=== PATIENT | female | born 1980 | race African-American/Black ===

== ENCOUNTER 2016-11-20 12:25 | Emergency (ER) | payer MEDICARE, MEDICAID ==
[~2016-11-20] VITALS: Ht 167.6 cm; Wt 110.0 kg
[~2016-11-20 12:25] MED LIST: EQUE100C PO; LOSA50TA PO; METO50TA PO
[2016-11-20 12:38] VITALS: BP 168/93; PULSE 68; RESP 18; TEMP 98.2; O2SAT 100
[2016-11-20 13:16] LABS: BASOPHIL % 0.2 % (0.0-2.0); HEMATOCRIT 35.8 % (35.0-46.0); HEMO FLAGS DIFF FINAL; LYMPH % 30.1 % (9.0-44.0); LYMPHOCYTE # 1.9 TH/MM3 (1.0-4.8); MEAN CELL VOLUME 82.8 FL (80.0-100.0); MEAN CORPUSCULAR HEMOGLOBIN 26.8 PG (27.0-34.0); MEAN CORPUSCULAR HGB CONC 32.3 % (32.0-36.0); MONO % 6.2 % (0.0-8.0); NEUT % 63.5 % (16.0-70.0); PLATELET COUNT 214 TH/MM3 (150-450); RED BLOOD COUNT 4.33 MIL/MM3 (4.00-5.30); RED CELL DISTRIBUTION WIDTH 14.7 % (11.6-17.2); WHITE BLOOD COUNT 6.4 TH/MM3 (4.0-11.0)
--- NOTE | 2016-11-20 13:21 | PD ---
HPI Chief Complaint: Pain: Acute or Chronic Time Seen by Provider: 13:19 Travel History International Travel<30 days: No Contact w/Intl Traveler<30days: No Traveled to known affect area: No History of Present Illness HPI Patient comes in complaining of left-sided chest pain that began about an hour prior to arrival. Patient states she is had similar chest pain in the past and has been admitted to the hospital and evaluated for it. Patient denies any cardiac evaluation outside hospital setting. Patient states that this is slightly different than her normal chest pain. Patient's chest pain normally is substernal and radiates into her abdomen however at this time was left side of her chest was pressure-like in nature. Patient reports associated headache. Denies any nausea, vomiting, diaphoresis, back pain, numbness or tingling anywhere, shortness breath, cough, or fever. PFSH Past Medical History Hx Anticoagulant Therapy: No Bipolar Disorder: Yes Cardiovascular Problems: Yes Chemotherapy: No Cerebrovascular Accident: No Diabetes: Yes Diminished Hearing: No Hypertension: Yes Psychiatric: Yes Reproductive: Yes (Polcystic Ovarian Disease) Respiratory: No : 0 Para: 0 Miscarriage: 0 : 0 Past Surgical History Hysterectomy: No Social History Alcohol Use: No Tobacco Use: No (never) Substance Use: No (Denies any abuse or current use.) Allergies-Medications (Allergen,Severity, Reaction): Coded Allergies: Amlodipine (Verified Allergy, Unknown, 11/07/16) Per pt. Metformin (Verified Allergy, Unknown, 11/07/16) Per pt, she thinks that she cannot take this as it resulted in Hives & Respiratory Issues. Reported Meds & Prescriptions Reported Meds & Active Scripts Active Reported Equetro ER 12 HR (Carbamazepine ER 12 HR) 100 Mg Cap 100 Mg PO DAILY Metoprolol Tartrate 50 Mg Tab 50 Mg PO BID Losartan (Losartan Potassium) 50 Mg Tab 50 Mg PO DAILY Review of Systems Except as stated in HPI: all other systems reviewed are Neg Physical Exam Narrative GENERAL: Well-developed, overly nourished, in no acute distress, and non-ill appearing. SKIN: Focused skin assessment warm and dry. HEAD: Atraumatic. Normocephalic. EYES: Pupils equal and round. EOMI. No scleral icterus. No injection or drainage. ENT: No nasal bleeding or discharge. Mucous membranes pink and moist. NECK: Trachea midline. No JVD. Supple. No nuclear rigidity. CARDIOVASCULAR: Regular rate and rhythm. No murmur appreciated. RESPIRATORY: No accessory muscle use. No respiratory distress. Clear to auscultation. Breath sounds equal bilaterally. MUSCULOSKELETAL: No obvious deformities. No clubbing. No cyanosis. No edema. Full range of motion. NEUROLOGICAL: Awake and alert. No obvious cranial nerve deficits. Motor grossly within normal limits. Normal speech. PSYCHIATRIC: Appropriate mood and affect; insight and judgment normal. Data Data Last Documented VS Vital Signs Date Time Temp Pulse Resp B/P Pulse Ox O2 Delivery O2 Flow Rate FiO2 11/20/16 12:38 98.2 68 18 168/93 100 Orders Electrocardiogram (11/20/16 ) Complete Blood Count With Diff (11/20/16 12:55) Basic Metabolic Panel (Bmp) (11/20/16 12:55) Ckmb (Isoenzyme) Profile (11/20/16 12:55) Troponin I (11/20/16 12:55) Chest, Single Ap (11/20/16 12:55) Iv Access Insert/Monitor (11/20/16 12:55) Magnesium (Mg) (11/20/16 13:16) Prothrombin Time / Inr (Pt) (11/20/16 13:16) Act Partial Throm Time (Ptt) (11/20/16 13:16) Ecg Monitoring (11/20/16 13:16) Bilateral Bp Monitoring (11/20/16 13:16) Oximetry (11/20/16 13:16) Oxygen Administration (11/20/16 13:16) Aspirin Chew (Aspirin Chew) (11/20/16 13:30) Sodium Chloride 0.9% Flush (Ns Flush) (11/20/16 13:30) CKMB (11/20/16 13:00) CKMB% (11/20/16 13:00) Labs Laboratory Tests Test 11/20/16 11/20/16 11/20/16 11:30 13:00 14:11 Magnesium Level 2.2 MG/DL White Blood Count 6.4 TH/MM3 Red Blood Count 4.33 MIL/MM3 Hemoglobin 11.6 GM/DL Hematocrit 35.8 % Mean Corpuscular Volume 82.8 FL Mean Corpuscular Hemoglobin 26.8 PG Mean Corpuscular Hemoglobin 32.3 % Concent Red Cell Distribution Width 14.7 % Platelet Count 214 TH/MM3 Mean Platelet Volume 9.4 FL Neutrophils (%) (Auto) 63.5 % Lymphocytes (%) (Auto) 30.1 % Monocytes (%) (Auto) 6.2 % Eosinophils (%) (Auto) 0.0 % Basophils (%) (Auto) 0.2 % Neutrophils # (Auto) 4.0 TH/MM3 Lymphocytes # (Auto) 1.9 TH/MM3 Monocytes # (Auto) 0.4 TH/MM3 Eosinophils # (Auto) 0.0 TH/MM3 Basophils # (Auto) 0.0 TH/MM3 CBC Comment DIFF FINAL Differential Comment Sodium Level 139 MEQ/L Potassium Level 4.1 MEQ/L Chloride Level 107 MEQ/L Carbon Dioxide Level 28.9 MEQ/L Anion Gap 3 MEQ/L Blood Urea Nitrogen 16 MG/DL Creatinine 0.82 MG/DL Estimat Glomerular Filtration 95 ML/MIN Rate Random Glucose 77 MG/DL Calcium Level 8.4 MG/DL Total Creatine Kinase 129 U/L Creatine Kinase MB 1.4 NG/ML Troponin I LESS THAN 0.02 NG/ML Prothrombin Time 10.1 SEC Prothromb Time International 0.9 RATIO Ratio Activated Partial 29.6 SEC Thromboplast Time MDM Medical Decision Making Medical Screen Exam Complete: Yes Emergency Medical Condition: Yes Differential Diagnosis Acute coronary syndrome, pneumonia, noncardiac chest pain, costochondritis, electrolyte abnormality, other Narrative Course The patients chest pain by history and evaluation appears noncardiac, nor noncardiopulmonary in etiology. Evaluation revealed no evidence of cardiac involvement at this time. There is no clinical evidence to suggest thoracic aortic aneurysms or pathology, nor evidence to suggest pulmonary embolism, pericarditis, pneumothorax, nor pneumonia at this time. The patient has minimal risk factors for cardiac disease, pulmonary embolism or aortic disease. Clinical suspicion was discussed with patient and the patient was instructed to follow up with Cardiology for potential outpatient evaluation. Patient in no obvious distress upon re-evaluation. All pertinent laboratory/ Radiology result(s) discussed with patient. Discussed patient with Dr. López, who saw and evaluated the patient and is in agreement with plan of care and disposition. Any questions/concerns in reference to patient diagnosis/ condition discussed and clarified prior to patient's discharge. Reinforced sheer importance of close follow up with patient's primary physician or primary care clinic. Instructed patient to return to ED immediately, if symptoms return/ worsen. Pt showed understanding of above instructions. Further instructions and recommendations were detailed in discharge paperwork. Pt ambulated without difficulty out of ED at discharge. Diagnosis Primary Impression: Non-cardiac chest pain Referrals: Field Operations Coordinator Primary Care Physician Patient Instructions: General Instructions, Noncardiac Chest Pain (ED) Additional Instructions: Follow-up with your primary care physician and/or textile coating machine operator this week for reevaluation. Return to the emergency department if symptoms get worse. Disposition: 01 DISCHARGE HOME Condition: Stable Alejandro Baer Nov 20, 2016 13:21
[2016-11-20] MEDS ORDERED: SODIUM CHLORIDE 0.9% FLUSH 10 ML FLUSH IVF PRN (13:30)
[2016-11-20] MEDS ORDERED: ASPIRIN 81 MG CHEW TAB PO ONE (13:30)
[2016-11-20 13:31] LABS: ANION GAP 3 MEQ/L (5-15); BICARBONATE 28.9 MEQ/L (21.0-32.0); BLOOD UREA NITROGEN 16 MG/DL (7-18); CHLORIDE 107 MEQ/L (98-107); GLOMERULAR FILTRATION RATE 95 ML/MIN (>89); POTASSIUM 4.1 MEQ/L (3.5-5.1); SODIUM (NA) 139 MEQ/L (136-145)
[2016-11-20 13:35] LABS: CREATINE KINASE 129 U/L (26-192)
--- NOTE | 2016-11-20 13:47 | RADRPT ---
EXAM DATE/TIME: 11/20/2016 13:17 [facility] COMPARISON: CHEST SINGLE AP, March 10, 2016, 12:29. INDICATIONS : Chest pain. MEDICAL HISTORY : Hypertension. Diabetes mellitus type II. SURGICAL HISTORY : None. ENCOUNTER: Initial ACUITY: 1 day PAIN SCORE: 10/10 LOCATION: Bilateral chest FINDINGS: A single view of the chest demonstrates the lungs to be symmetrically aerated without evidence of mas s, infiltrate or effusion. The cardiomediastinal contours are unremarkable. Osseous structures are intact. CONCLUSION: No acute disease. Carlos Pan MD on November 20, 2016 at 13:45 Board Certified Radiologist. This report was verified electronically.
[2016-11-20 13:48] LABS: CKMB 1.4 NG/ML (0.5-3.6)
[2016-11-20 14:33] LABS: APTT (PATIENT) 29.6 SEC (24.3-30.1); INTERNATIONAL NORMALIZED RATIO 0.9 RATIO; PROTHROMBIN TIME - PATIENT 10.1 SEC (9.8-11.6)
--- NOTE | 2016-11-20 14:33 | PD ---
Data Data Last Documented VS Vital Signs Date Time Temp Pulse Resp B/P Pulse Ox O2 Delivery O2 Flow Rate FiO2 11/20/16 12:38 98.2 68 18 168/93 100 Orders Electrocardiogram (11/20/16 ) Complete Blood Count With Diff (11/20/16 12:55) Basic Metabolic Panel (Bmp) (11/20/16 12:55) Ckmb (Isoenzyme) Profile (11/20/16 12:55) Troponin I (11/20/16 12:55) Chest, Single Ap (11/20/16 12:55) Iv Access Insert/Monitor (11/20/16 12:55) Magnesium (Mg) (11/20/16 13:16) Prothrombin Time / Inr (Pt) (11/20/16 13:16) Act Partial Throm Time (Ptt) (11/20/16 13:16) Ecg Monitoring (11/20/16 13:16) Bilateral Bp Monitoring (11/20/16 13:16) Oximetry (11/20/16 13:16) Oxygen Administration (11/20/16 13:16) Aspirin Chew (Aspirin Chew) (11/20/16 13:30) Sodium Chloride 0.9% Flush (Ns Flush) (11/20/16 13:30) CKMB (11/20/16 13:00) CKMB% (11/20/16 13:00) Labs Laboratory Tests Test 11/20/16 11/20/16 11:30 13:00 Magnesium Level 2.2 MG/DL White Blood Count 6.4 TH/MM3 Red Blood Count 4.33 MIL/MM3 Hemoglobin 11.6 GM/DL Hematocrit 35.8 % Mean Corpuscular Volume 82.8 FL Mean Corpuscular Hemoglobin 26.8 PG Mean Corpuscular Hemoglobin 32.3 % Concent Red Cell Distribution Width 14.7 % Platelet Count 214 TH/MM3 Mean Platelet Volume 9.4 FL Neutrophils (%) (Auto) 63.5 % Lymphocytes (%) (Auto) 30.1 % Monocytes (%) (Auto) 6.2 % Eosinophils (%) (Auto) 0.0 % Basophils (%) (Auto) 0.2 % Neutrophils # (Auto) 4.0 TH/MM3 Lymphocytes # (Auto) 1.9 TH/MM3 Monocytes # (Auto) 0.4 TH/MM3 Eosinophils # (Auto) 0.0 TH/MM3 Basophils # (Auto) 0.0 TH/MM3 CBC Comment DIFF FINAL Differential Comment Sodium Level 139 MEQ/L Potassium Level 4.1 MEQ/L Chloride Level 107 MEQ/L Carbon Dioxide Level 28.9 MEQ/L Anion Gap 3 MEQ/L Blood Urea Nitrogen 16 MG/DL Creatinine 0.82 MG/DL Estimat Glomerular Filtration 95 ML/MIN Rate Random Glucose 77 MG/DL Calcium Level 8.4 MG/DL Total Creatine Kinase 129 U/L Creatine Kinase MB 1.4 NG/ML Troponin I LESS THAN 0.02 NG/ML MDM Supervised Visit with RUY: Yes Narrative Course The history, exam, and medical decision-making in the associated midlevel provider note were completed with my assistance. I reviewed and agree with the findings presented. I attest that I had a [id number] encounter with the patient on the same day, and personally performed and documented my assessment and findings in the medical record. *My assessment and Findings: This is a 36-year-old female who presents to the emergency department with chest discomfort that started several hours prior to arrival. The patient has had this discomfort for a long time. Her most recent stress test was a year and a half ago. She is seeing a GI doctor and is scheduled for an endoscopy but the GI doctor wants her to have a stress test prior to doing this. She's been having difficulty scheduling this is an outpatient. When her chest discomfort started today she figured may be she could come to the emergency department and she would be able to get her stress test expedited. She is very well-appearing. She is requesting a GI cocktail. Her heart score puts her in a low risk category. I think she is appropriate for outpatient follow-up with [facility] with which she is already established. I don't think the patient requires admission at this time given this is a subacute problem. Patient will be discharged home. Emily López MD Nov 20, 2016 14:32
--- NOTE | 2016-11-20 14:37 | EKG ---
Date Performed: 11/20/2016 Time Performed: 12:50:26 PTAGE: 36 years EKG: Sinus rhythm NORMAL ECG INTERPRETATION BASED ON A DEFAULT AGE OF 39 YEARS NO PREVIOUS TRACING DOCTOR: Freddy Barth Interpretating Date/Time 11/20/2016 14:35:08
[2016-12-18] MEDS ORDERED: PRED20 PO (14:40)
[2016-12-18] MEDS ORDERED: AZIT500T2 PO (14:40)
== END 2016-11-20 15:35 | disposition home or self-care (01) ==
LOC: NEDAMB 12:25
DX: R07.89 Other chest pain (principal); I10 Essential (primary) hypertension; E28.2 Polycystic ovarian syndrome
CPT/HCPCS: 71010; 80048; 82550; 82552; 83735; 84484; 85025; 85610; 85730; 93005

== ENCOUNTER 2017-04-30 00:51 | Emergency (ER) | payer MEDICARE, MEDICAID ==
[~2017-04-30] VITALS: Ht 157.5 cm; Wt 134.0 kg
[~2017-04-30 00:51] MED LIST changes: +AZIT500T2 PO; +PRED20 PO
[2017-04-30 01:05] VITALS: BP 179/100; TEMP 98; O2SAT 97
--- NOTE | 2017-04-30 01:12 | PD ---
HPI Chief Complaint: Respiratory Distress Time Seen by Provider: 01:07 Travel History International Travel<30 days: No Contact w/Intl Traveler<30days: No Traveled to known affect area: No History of Present Illness HPI The patient is a 37 year old female who presents to the [facility] emergency department with a history of cough and shortness of breath that began suddenly while lying down to sleep. She reports that she had a sensation of having reflux. She reports that she has had worsening reflux recently. She reports that she underwent endoscopy a month ago that did reveal an area of erosion in her stomach and inflammation in her esophagus. She reports that she was previously on Nexium. She reports that she stopped taking it when she began to feel better. On Sunday she did call her GI doctor regarding the reflux worsening again. She was told to restart the Nexium. She reports that she has not restarted it yet. She reports that she only has a few tablets left. She reports that prior to arrival she did try taking 2 Tums without relief and then Pepcid. The patient reports that she ate something approximately one to 2 hour prior to going to bed. The patient reports that prior to undergoing endoscopy she did have a full cardiac workup including a stress test and echo which were unremarkable. On review of systems, she denies having any recent fevers, congestion, neck pain, abdominal pain, vomiting, diarrhea, urinary symptoms, or neurologic symptoms. LMP: 3 1/2 weeks ago. [facility] Past Medical History Narrative Medical The patient's past medical history is significant for bipolar disorder, GERD, hypertension, PCOS, obesity. [place] doctors-PCP Hx Anticoagulant Therapy: No Bipolar Disorder: Yes Cardiovascular Problems: Yes Chemotherapy: No Cerebrovascular Accident: No Diabetes: Yes Diminished Hearing: No Hypertension: Yes Psychiatric: Yes Reproductive: Yes (Polcystic Ovarian Disease) Respiratory: No ?: Not : 0 Para: 0 Miscarriage: 0 : 0 Past Surgical History Surgical History: No Previous Surgery Hysterectomy: No Social History Alcohol Use: No Tobacco Use: No (never) Substance Use: No (Denies any abuse or current use.) Allergies-Medications (Allergen,Severity, Reaction): Coded Allergies: amlodipine (Unverified Allergy, Unknown, 03/20/17) Per pt. metformin (Unverified Allergy, Unknown, 03/20/17) Per pt, she thinks that she cannot take this as it resulted in Hives & Respiratory Issues. Reported Meds & Prescriptions Reported Meds & Active Scripts Active Nexium (Esomeprazole DR) 40 Mg Capdr 40 Mg PO DAILY Prednisone 20 Mg Tab 40 Mg PO DAILY Take 40 mg (2 tablets) daily for 5 days Azithromycin 500 Mg Tab 500 Mg PO DAILY Reported Equetro ER 12 HR (Carbamazepine ER 12 HR) 100 Mg Cap 100 Mg PO DAILY Metoprolol Tartrate 50 Mg Tab 50 Mg PO BID Losartan (Losartan Potassium) 50 Mg Tab 50 Mg PO DAILY Review of Systems Except as stated in HPI: all other systems reviewed are Neg General / Constitutional: No: Fever Eyes: No: Visual changes HENT: No: Headaches Cardiovascular: No: Chest Pain or Discomfort Respiratory: No: Shortness of Breath Gastrointestinal: Positive: Indigestion, No: Nausea, Vomiting, Diarrhea, Abdominal Pain, Loss of Appetite Genitourinary: No: Dysuria Musculoskeletal: No: Pain Skin: No Rash Neurologic: No: Weakness Psychiatric: No: Depression Endocrine: No: Polydipsia Hematologic/Lymphatic: No: Easy Bruising Physical Exam Narrative General: The patient is a well-developed well-nourished female in no acute distress. Head and Neck exam: Head is normocephalic atraumatic. Eyes: EOMI, pupils are equal round and reactive to light. Nose: Midline septum with pink mucous membranes Mouth: Dentition unremarkable. Moist mucus membranes. Posterior oropharynx is not erythematous. No tonsillar hypertrophy. Uvula midline. Airway patent. Neck: No palpable lymphadenopathy. No nuchal rigidity. No thyromegaly. Cardiovascular: Regular rate and rhythm without murmurs, gallops, or rubs. Lungs: Clear to auscultation bilaterally. No wheezes, rhonchi, or rales. Abdomen: Soft, without tenderness to palpation in all 4 quadrants of the abdomen. No guarding, rebound, or rigidity. Normal bowel sounds are audible. No tenderness on palpation of McBurney's point. Negative Rayo's sign. Extremities: No clubbing, cyanosis, or edema. 2+ pulses in all 4 extremities. No calf tenderness on palpation. Back: No spinous process tenderness to palpation. No costovertebral angle tenderness to palpation. Neurologic Exam: Grossly nonfocal. Skin Exam: No rash noted. Intact skin that is warm and dry. Data Data Last Documented VS Vital Signs Date Time Temp Pulse Resp B/P (MAP) Pulse Ox O2 Delivery O2 Flow Rate FiO2 04/30/17 02:13 81 18 173/85 (114) 100 Room Air 04/30/17 01:15 2.00 04/30/17 01:05 98.0 Orders Orders Electrocardiogram (04/30/17 01:10) Complete Blood Count With Diff (04/30/17 01:10) Comprehensive Metabolic Panel (04/30/17 01:10) Creatine Kinase (Cpk) (04/30/17 01:10) Ckmb (Isoenzyme) Profile (04/30/17 01:10) Troponin I (04/30/17 01:10) B-Type Natriuretic Peptide (04/30/17 01:10) Prothrombin Time / Inr (Pt) (04/30/17 01:10) Act Partial Throm Time (Ptt) (04/30/17 01:10) Lipase (04/30/17 01:10) Urinalysis - C+S If Indicated (04/30/17 01:10) Magnesium (Mg) (04/30/17 01:10) Chest, Single Ap (04/30/17 01:10) Iv Access Insert/Monitor (04/30/17 01:10) Ecg Monitoring (04/30/17 01:10) Oximetry (04/30/17 01:10) CKMB (04/30/17 01:25) CKMB% (04/30/17 01:25) Al-Mag Hy-Si 40-40-4 Mg/Ml Liq (Mag-Al P (04/30/17 03:30) Pantoprazole Inj (Protonix Inj) (04/30/17 03:30) Labs Laboratory Tests Test 04/30/17 01:25 04/30/17 01:55 White Blood Count 7.9 TH/MM3 Red Blood Count 4.36 MIL/MM3 Hemoglobin 12.0 GM/DL Hematocrit 36.0 % Mean Corpuscular Volume 82.5 FL Mean Corpuscular Hemoglobin 27.4 PG Mean Corpuscular Hemoglobin Concent 33.2 % Red Cell Distribution Width 14.2 % Platelet Count 197 TH/MM3 Mean Platelet Volume 9.5 FL Neutrophils (%) (Auto) 65.3 % Lymphocytes (%) (Auto) 30.0 % Monocytes (%) (Auto) 4.5 % Eosinophils (%) (Auto) 0.0 % Basophils (%) (Auto) 0.2 % Neutrophils # (Auto) 5.2 TH/MM3 Lymphocytes # (Auto) 2.4 TH/MM3 Monocytes # (Auto) 0.4 TH/MM3 Eosinophils # (Auto) 0.0 TH/MM3 Basophils # (Auto) 0.0 TH/MM3 CBC Comment DIFF FINAL Differential Comment Prothrombin Time 10.2 SEC Prothromb Time International Ratio 0.9 RATIO Activated Partial Thromboplast Time 30.4 SEC Blood Urea Nitrogen 23 MG/DL Creatinine 1.09 MG/DL Random Glucose 84 MG/DL Total Protein 7.8 GM/DL Albumin 3.3 GM/DL Calcium Level 8.6 MG/DL Magnesium Level 2.0 MG/DL Alkaline Phosphatase 99 U/L Aspartate Amino Transf (AST/SGOT) 16 U/L Alanine Aminotransferase (ALT/SGPT) 35 U/L Total Bilirubin 0.2 MG/DL Sodium Level 138 MEQ/L Potassium Level 3.3 MEQ/L Chloride Level 104 MEQ/L Carbon Dioxide Level 25.6 MEQ/L Anion Gap 8 MEQ/L Estimat Glomerular Filtration Rate 68 ML/MIN Total Creatine Kinase 128 U/L Creatine Kinase MB 2.3 NG/ML Troponin I LESS THAN 0.02 NG/ML B-Type Natriuretic Peptide 44 PG/ML Lipase 184 U/L Urine Color LIGHT-YELLOW Urine Turbidity CLEAR Urine pH 6.0 Urine Specific [place] 1.012 Urine Protein NEG mg/dL Urine Glucose (UA) NEG mg/dL Urine Ketones NEG mg/dL Urine Occult Blood NEG Urine Nitrite NEG Urine Bilirubin NEG Urine Urobilinogen LESS THAN 2.0 MG/DL Urine Leukocyte Esterase NEG Urine RBC LESS THAN 1 /hpf Urine Squamous Epithelial Cells <1 /hpf Urine Bacteria RARE /hpf Microscopic Urinalysis Comment CULT NOT INDICATED MDM Medical Decision Making Medical Screen Exam Complete: Yes Emergency Medical Condition: Yes Medical Record Reviewed: Yes Interpretation(s) Last Impressions Chest X-Ray 04/30/17 0110 Signed Impressions: Service Date/Time: Sunday, April 30, 2017 01:27 - CONCLUSION: No acute disease. No significant change has occurred. Guanako Stinson MD Differential Diagnosis Acid reflux with aspiration, versus bronchitis, versus pneumonia, versus congestive heart failure Narrative Course During the course of the patients emergency department visit, the patients history, examination, and differential diagnosis were reviewed with the patient. The patient had IV access obtained and blood work sent for analysis. The patient was placed on a hospital monitor with oximetry and blood pressure monitoring. An ECG was done on arrival. The patient's ECG reveals a sinus rhythm with a heart rate of 76, no acute ST segment elevation or depression, QRS duration is 89 ms, QTC 409 ms. The patient was initially provided Maalox 30 mL by mouth 1, Protonix 40 mg IV. The patients laboratory studies were reviewed and remarkable for a CBC that is within normal limits, CMP is remarkable for potassium of 3.3, BUN 23, creatinine 1.09, CPK 128, troponin I less than 0.02, BNP 44, lipase 184, PT PTT and remarkable, urinalysis within normal limits. Radiology studies were reviewed and remarkable for a chest x-ray that shows no acute cardiopulmonary disease. The patient will be discharged home with a prescription for Nexium to continue as previously recommended by her pediatric registered nurse. The patient is resting comfortably and feels better, is alert and in no distress. The patients results and examination findings were discussed with the patient. The repeat examination is unremarkable and benign. The history, exam, diagnostic testing, and current condition do not suggest any significant pathology to warrant further testing, continued ED treatment, admission, or surgical evaluation at this point. The vital signs have been stable. The patient does not have uncontrollable pain, intractable vomiting, or other significant symptoms. The patient's condition is stable and appropriate for discharge. The patient will pursue further outpatient evaluation with a primary care physician or other designated or consulting physician as indicated in the discharge instructions. The patient expressed understanding and was agreeable with this plan. Diagnosis Primary Impression: GERD (gastroesophageal reflux disease) Qualified Codes: K21.9 - Gastro-esophageal reflux disease without esophagitis Additional Impression: Cough Referrals: Clinical Fellow 1 week Primary Care Physician 2 days Patient Instructions: Gastroesophageal Reflux Disease (ED), General Instructions Med/Other Pt SpecificInfo: Prescription(s) given Scripts Esomeprazole DR (Nexium) 40 Mg Capdr 40 MG PO DAILY, #30 CAP 0 Refills Prov: Radha Davis MD 04/30/17 Disposition: DISCHARGE HOME Condition: Stable Radha Davis MD Apr 30, 2017 01:12
[2017-04-30 01:15] VITALS: O2SAT 97
--- NOTE | 2017-04-30 01:52 | RADRPT ---
EXAM DATE/TIME: 04/30/2017 01:27 [facility] COMPARISON: CHEST SINGLE AP, November 20, 2016, 13:17. INDICATIONS : Short of breath. MEDICAL HISTORY : Hypertension. Diabetes mellitus type II. SURGICAL HISTORY : None. ENCOUNTER: Initial ACUITY: 1 day PAIN SCORE: 0/10 LOCATION: Bilateral chest FINDINGS: A single view of the chest demonstrates the lungs to be symmetrically aerated without evidence of mas s, infiltrate or effusion. The cardiomediastinal contours are unremarkable. Osseous structures are intact. CONCLUSION: No acute disease. No significant change has occurred. Guanako Stinson MD on April 30, 2017 at 1:50 Board Certified Radiologist. This report was verified electronically.
[2017-04-30 01:57] LABS: AUTOMATED NEUTROPHIL # 5.2 TH/MM3 (1.8-7.7); BASOPHIL % 0.2 % (0.0-2.0); HEMO FLAGS DIFF FINAL; LYMPHOCYTE # 2.4 TH/MM3 (1.0-4.8); MEAN CELL VOLUME 82.5 FL (80.0-100.0); MEAN CORPUSCULAR HEMOGLOBIN 27.4 PG (27.0-34.0); MEAN CORPUSCULAR HGB CONC 33.2 % (32.0-36.0); MONO % 4.5 % (0.0-8.0); NEUT % 65.3 % (16.0-70.0); PLATELET COUNT 197 TH/MM3 (150-450); RED BLOOD COUNT 4.36 MIL/MM3 (4.00-5.30); RED CELL DISTRIBUTION WIDTH 14.2 % (11.6-17.2); WHITE BLOOD COUNT 7.9 TH/MM3 (4.0-11.0)
[2017-04-30 02:10] LABS: APTT (PATIENT) 30.4 SEC (24.3-30.1); INTERNATIONAL NORMALIZED RATIO 0.9 RATIO; PROTHROMBIN TIME - PATIENT 10.2 SEC (9.8-11.6)
[2017-04-30 02:12] LABS: ALT (GPT) 35 U/L (10-53); ANION GAP 8 MEQ/L (5-15); AST (GOT) 16 U/L (15-37); BICARBONATE 25.6 MEQ/L (21.0-32.0); BLOOD UREA NITROGEN 23 MG/DL (7-18); CHLORIDE 104 MEQ/L (98-107); GLOMERULAR FILTRATION RATE 68 ML/MIN (>89); POTASSIUM 3.3 MEQ/L (3.5-5.1); SODIUM (NA) 138 MEQ/L (136-145)
[2017-04-30 02:13] VITALS: BP 173/85; PULSE 81; RESP 18; O2SAT 100
[2017-04-30 02:15] LABS: ALKALINE PHOSPHATASE 99 U/L (45-117); CREATINE KINASE 128 U/L (26-192); TOTAL BILIRUBIN ADULT 0.2 MG/DL (0.2-1.0)
[2017-04-30 02:18] LABS: BACTERIA, URINE RARE /hpf; BLOOD, URINE NEG (NEG); COMMENT (UR) CULT NOT INDICATED; CULTURE IF INDICATED CULT NOT INDICATED; GLUCOSE,URINE NEG (NEG); KETONE, URINE NEG (NEG); NITRITE,URINE NEG (NEG); SQUAMOUS EPITHELIAL CELL URINE <1 /hpf (0-5); URINE COLOR LIGHT-YELLOW (YELLW/STRAW)
[2017-04-30 02:27] LABS: CKMB 2.3 NG/ML (0.5-3.6)
[2017-04-30] MEDS ORDERED: ALUMINUM/MAGNESIUM/SIMETH 30 ML CUP PO ONE (03:30)
[2017-04-30] MEDS ORDERED: PANTOPRAZOLE SODIUM 40 MG VIAL IV PUSH ONE (03:30)
[2017-04-30] MEDS ORDERED: NEXI40CA PO (03:40)
--- NOTE | 2017-04-30 14:15 | EKG ---
Date Performed: 04/30/2017 Time Performed: 01:10:53 PTAGE: 37 years EKG: Sinus rhythm NORMAL ECG Compared to prior tracing no significant change PREVIOUS TRACING : 11/20/2016 12.50 DOCTOR: Cristino Liriano Interpretating Date/Time 04/30/2017 14:14:01
== END 2017-04-30 04:42 | disposition home or self-care (01) ==
LOC: NEPE 00:51
DX: K21.9 Gastro-esophageal reflux disease without esophagitis (principal); R05 Cough; E11.9 Type 2 diabetes mellitus without complications; I10 Essential (primary) hypertension
CPT/HCPCS: 71010; 80053; 81001; 82550; 82552; 83690; 83735; 83880; 84484; 85025; 85610; 85730; 93005; 99285; C9113

== ENCOUNTER 2017-05-12 21:15 | Emergency (ER) | payer MEDICARE, MEDICAID ==
[~2017-05-12] VITALS: Ht 157.5 cm; Wt 133.7 kg
[~2017-05-12 21:15] MED LIST changes: +NEXI40CA PO
[2017-05-12 21:23] VITALS: BP 183/92; PULSE 65; RESP 20; TEMP 98
--- NOTE | 2017-05-12 22:01 | PD ---
HPI Chief Complaint: Allergic/Adverse Reaction Time Seen by Provider: 21:45 Travel History International Travel<30 days: No Contact w/Intl Traveler<30days: No Traveled to known affect area: No History of Present Illness HPI The patient is a 37-year-old female with a history of allergies who states she was cooking peppers at 8 PM tonight when she began to get a burning and itching feeling all over her arms and back and eyes watering and itching. At 8:30 she took 50 mg of Benadryl but, when she did not get better, she came to the emergency department. Now the patient has resolved virtually all of her symptoms except some minimal itching on the volar forearms. She never developed any wheezing, shortness of breath and syncopal or near syncopal spells. She denies any chest pain. PFSH Past Medical History Hx Anticoagulant Therapy: No Bipolar Disorder: Yes Cardiovascular Problems: Yes Chemotherapy: No Cerebrovascular Accident: No Diabetes: Yes Diminished Hearing: No GERD: Yes Hypertension: Yes Psychiatric: Yes Reproductive: Yes (Polcystic Ovarian Disease) Respiratory: No LMP: 05/10/17 : 0 Para: 0 Miscarriage: 0 : 0 Past Surgical History Hysterectomy: No Social History Alcohol Use: No Tobacco Use: No Substance Use: No Allergies-Medications (Allergen,Severity, Reaction): Coded Allergies: amlodipine (Unverified Allergy, Unknown, 05/12/17) Per pt. metformin (Unverified Allergy, Unknown, 05/12/17) Per pt, she thinks that she cannot take this as it resulted in Hives & Respiratory Issues. Reported Meds & Prescriptions Reported Meds & Active Scripts Active Nexium (Esomeprazole DR) 40 Mg Capdr 40 Mg PO DAILY Reported Equetro ER 12 HR (Carbamazepine ER 12 HR) 100 Mg Cap 100 Mg PO DAILY Metoprolol Tartrate 50 Mg Tab 50 Mg PO BID Losartan (Losartan Potassium) 50 Mg Tab 50 Mg PO DAILY Review of Systems Except as stated in HPI: all other systems reviewed are Neg Physical Exam Narrative GENERAL: Well-nourished, alert and oriented, obese patient in no apparent distress. Her vital signs show blood pressure 183/92 but otherwise normal. SKIN: Focused skin assessment warm/dry. No skin rash is seen. HEAD: Normocephalic. EYES: No scleral icterus. No injection or drainage. NECK: Supple, trachea midline. No JVD or lymphadenopathy. CARDIOVASCULAR: Regular rate and rhythm without murmurs, gallops, or rubs. RESPIRATORY: Breath sounds equal bilaterally. No accessory muscle use. Lungs clear to auscultation bilaterally. GASTROINTESTINAL: Abdomen soft, non-tender, nondistended. MUSCULOSKELETAL: No cyanosis, or edema. BACK: Nontender without obvious deformity. No CVA tenderness. Data Data Last Documented VS Vital Signs Date Time Temp Pulse Resp B/P (MAP) Pulse Ox O2 Delivery O2 Flow Rate FiO2 05/12/17 21:23 98.0 65 20 183/92 (122) [facility] Medical Decision Making Medical Screen Exam Complete: Yes Emergency Medical Condition: Yes Medical Record Reviewed: Yes Differential Diagnosis Allergic reaction, anxiety reaction, toxic reaction Narrative Course The patient appears to have allergic reaction, possibly to the pepper she was cooking. She has completely resolved this reaction except for some minimal itching on the forearms. She is to take the Benadryl 50 mg every 8 hours should she continue to have symptoms. At this time I do not feel epinephrine or steroids are indicated. She should follow-up with her primary care physician next week. Diagnosis Primary Impression: Allergic reaction Additional Instructions: Follow-up with your primary care physician next week. Continue to take the Benadryl at 50 mg every 8 hours if you continue to have symptoms. Disposition: 01 DISCHARGE HOME Condition: Stable Lawrence Conner MD May 12, 2017 22:01
== END 2017-05-12 22:14 | disposition home or self-care (01) ==
LOC: PHED 21:15
DX: T78.49XA Other allergy, initial encounter (principal); L29.9 Pruritus, unspecified; E11.9 Type 2 diabetes mellitus without complications; I10 Essential (primary) hypertension; K21.9 Gastro-esophageal reflux disease without esophagitis
CPT/HCPCS: 99282

== ENCOUNTER 2017-11-19 12:11 | Emergency (ER) | payer MEDICARE, MEDICAID ==
[~2017-11-19] VITALS: Ht 157.5 cm; Wt 137.5 kg
[~2017-11-19 12:11] MED LIST changes: -AZIT500T2 PO; -PRED20 PO
[2017-11-19 12:13] VITALS: BP 151/73; PULSE 78; RESP 18; TEMP 97.9; O2SAT 97
[2017-11-19] MEDS ORDERED: DEXI60CA3 PO (12:31)
--- NOTE | 2017-11-19 12:40 | PD ---
HPI Chief Complaint: Pain: Acute or Chronic Time Seen by Provider: 12:23 Travel History International Travel<30 days: No Contact w/Intl Traveler<30days: No Traveled to known affect area: No History of Present Illness HPI 37yo F with PMH of obesity and HTN here with multiple complaints today. Pt said last week she started having a headache for 3 days and then it resolved. Then she started having right upper tooth pain and then it resolved as well. Last night, she started having increased urinary frequency and urgency. Today, she started having right shoulder pain about an hour ago. Said pain is sharp and constant and has no exacerbating factors. Pt took ibuprofen and pain has improved but still there. Denies any trauma, fall, visual changes, fever, chest pain, sob, n/v, abdominal pain, focal weakness or numbness. PFSH Past Medical History Hx Anticoagulant Therapy: No Bipolar Disorder: Yes Cardiovascular Problems: Yes Chemotherapy: No Cerebrovascular Accident: No Diabetes: Yes Patient Takes Glucophage: No Diminished Hearing: No GERD: Yes Hypertension: Yes Psychiatric: Yes Reproductive: Yes (Polcystic Ovarian Disease) Respiratory: No Influenza Vaccination: Yes ?: Not : 0 Para: 0 Miscarriage: 0 : 0 Past Surgical History Surgical History: No Previous Surgery Hysterectomy: No Social History Alcohol Use: No Tobacco Use: No Substance Use: No Allergies-Medications (Allergen,Severity, Reaction): Coded Allergies: amlodipine (Unverified Allergy, Unknown, 11/19/17) Per pt. metformin (Unverified Allergy, Unknown, 11/19/17) Per pt, she thinks that she cannot take this as it resulted in Hives & Respiratory Issues. Reported Meds & Prescriptions Reported Meds & Active Scripts Active Reported Dexilant (Dexlansoprazole) 60 Mg Cap.bp 1 Cap PO DAILY Equetro ER 12 HR (Carbamazepine ER 12 HR) 100 Mg Cap 300 Mg PO DAILY Metoprolol Tartrate 50 Mg Tab 50 Mg PO BID Losartan (Losartan Potassium) 50 Mg Tab 50 Mg PO DAILY Review of Systems Except as stated in HPI: all other systems reviewed are Neg Physical Exam Narrative GENERAL: 37yo F not in distress. SKIN: Focused skin assessment warm/dry. HEAD: Atraumatic. Normocephalic. EYES: Pupils equal and round at 3mm bilaterally. EOMI. ENT: No nasal bleeding or discharge. Mucous membranes pink and moist. MOUTH: No trismus. No fluctuance or ttp right upper tooth or gingiva. NECK: No nuchal rigidity. CARDIOVASCULAR: Regular rate and rhythm. No murmur appreciated. RESPIRATORY: No accessory muscle use. Clear to auscultation. Breath sounds equal bilaterally. GASTROINTESTINAL: Abdomen soft, non-tender, nondistended. No rebound tenderness. MUSCULOSKELETAL: RUE: Good range of motion. Mild ttp diffusely right shoulder and proximal humerus. No erythema. Sensation intact. Distal pulses intact. NEUROLOGICAL: Awake and alert. No obvious cranial nerve deficits. Motor grossly within normal limits in all extremities. Sensation intact. Normal speech. PSYCHIATRIC: Appropriate mood and affect; insight and judgment normal. Data Data Last Documented VS Vital Signs Date Time Temp Pulse Resp B/P (MAP) Pulse Ox O2 Delivery O2 Flow Rate FiO2 11/19/17 12:13 97.9 78 18 151/73 (99) 97 Orders Orders Electrocardiogram (11/19/17 ) Urinalysis - C+S If Indicated (11/19/17 12:34) Shoulder, Complete (>2vws) (11/19/17 ) Acetaminophen (Tylenol) (11/19/17 12:45) Ed Urine Pregnancytest Poc (11/19/17 13:14) Labs Laboratory Tests Test 11/19/17 13:40 Urine Collection Type CLEAN CATCH Urine Color YELLOW Urine Turbidity CLEAR Urine pH 6.0 Urine Specific [place] 1.025 Urine Protein NEG mg/dL Urine Glucose (UA) NEG mg/dL Urine Ketones NEG mg/dL Urine Occult Blood NEG Urine Nitrite NEG Urine Bilirubin NEG Urine Urobilinogen 0.2 MG/DL Urine Leukocyte Esterase NEG Urine WBC 0-2 /hpf Urine Squamous Epithelial Cells 3-5 /hpf Urine Bacteria FEW /hpf Microscopic Urinalysis Comment CULT NOT INDICATED MDM Medical Decision Making Medical Screen Exam Complete: Yes Emergency Medical Condition: Yes Interpretation(s) EKG: NSR 66bpm. TWI III. 1mm ST elevation V2, V3. No ST segment depression. Differential Diagnosis Musculoskeletal pain vs. anxiety vs. UTI Narrative Course 37yo F with multiple complaints. UA showed no leukocyte. Culture not indicated. Urine negative. Xray right shoulder showed mild degenerative changes. Pt given acetaminophen and said symptoms resolved. Pt is very well appearing and reassured. Pt requesting work note. Return precautions given. Diagnosis Primary Impression: Shoulder pain Qualified Codes: M25.511 - Pain in right shoulder Patient Instructions: General Instructions Departure Forms: Tests/Procedures Additional Instructions: Please follow up with your primary care physician in 3-7 days. Return to the ED if symptoms worsen. Med/Other Pt SpecificInfo: Prescription(s) given Scripts Acetaminophen (Tylenol) 325 Mg Tab 650 MG PO Q6H Y for PAIN SCALE 1 TO 4, #20 TAB 0 Refills Prov: Bekah Whitehead DO 11/19/17 Disposition: 01 DISCHARGE HOME Condition: Stable Bekah Whitehead DO Nov 19, 2017 12:40
[2017-11-19] MEDS ORDERED: ACETAMINOPHEN 500 MG CPLT PO ONE (12:45)
--- NOTE | 2017-11-19 13:05 | RADRPT ---
EXAM DATE/TIME: 11/19/2017 12:40 [facility] COMPARISON: No previous studies available for comparison. INDICATIONS : Pt states no known trauma. Pain to posterior shoulder blade. Pt shielded. MEDICAL HISTORY : None. SURGICAL HISTORY : None. ENCOUNTER: Initial ACUITY: 1 day PAIN SCORE: 3/10 LOCATION: Right upper extremity Shoulder FINDINGS: Multiple view examination of the right shoulder demonstrates no evidence of fracture or dislocation. The glenohumeral and acromioclavicular joints are maintained. Mild degenerative changes at the AC j oint. There is normal range of motion between internal and external rotation. Bony mineralization i s normal. CONCLUSION: Mild degenerative changes otherwise negative Randy Freire MD FACR on November 19, 2017 at 13:03 Board Certified Radiologist. This report was verified electronically.
[2017-11-19 13:47] LABS: BILIRUBIN, URINE NEG (NEG); BLOOD, URINE NEG (NEG); GLUCOSE,URINE NEG (NEG); KETONE, URINE NEG (NEG); NITRITE,URINE NEG (NEG); URINE COLOR YELLOW (YELLW/STRAW); URINE LEUKOCYTE ESTERASE NEG (NEG)
[2017-11-19 13:57] LABS: WBC, URINE 0-2 /hpf (0-5)
[2017-11-19 13:58] LABS: BACTERIA, URINE FEW /hpf
[2017-11-19] MEDS ORDERED: TYLE325T PO (14:16)
[2017-11-19 14:21] VITALS: BP 150/78
--- NOTE | 2017-11-20 15:34 | EKG ---
Date Performed: 11/19/2017 Time Performed: 13:01:56 PTAGE: 37 years EKG: Sinus rhythm NORMAL ECG Since the PREVIOUS TRACING , no significant change noted PREVIOUS TRACIN04/30/2017 01.10 DOCTOR: Michael Jorge Interpretating Date/Time 11/20/2017 15:23:48
== END 2017-11-19 14:24 | disposition home or self-care (01) ==
LOC: PHED 12:11
DX: M25.511 Pain in right shoulder (principal); I10 Essential (primary) hypertension; F31.9 Bipolar disorder, unspecified; K21.9 Gastro-esophageal reflux disease without esophagitis; E11.9 Type 2 diabetes mellitus without complications; E66.9 Obesity, unspecified; Z88.8 Allergy status to other drugs, medicaments and biological substances; Z79.84 Long term (current) use of oral hypoglycemic drugs
CPT/HCPCS: 73030; 81001; 84703; 93005

== ENCOUNTER 2018-01-15 10:00 | Emergency (ER) | payer MEDICARE, MEDICAID ==
[~2018-01-15] VITALS: Ht 157.5 cm; Wt 142.0 kg
[~2018-01-15 10:00] MED LIST changes: +DEXI60CA3 PO; -NEXI40CA PO; +TYLE325T PO
[2018-01-15 10:11] VITALS: BP 128/73; PULSE 75; RESP 16; TEMP 97.5; O2SAT 98
[2018-01-15] MEDS ORDERED: CLIN300C5 PO (10:29)
--- NOTE | 2018-01-15 10:42 | PD ---
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 She has a history of bacterial vaginosis and says she feels like she has it again. She has been sexually active with her boyfriend. Her last period was about 2 days ago. She is not having any abdominal pain. PFSH Past Medical History Hx Anticoagulant Therapy: No Bipolar Disorder: Yes Cardiovascular Problems: Yes Chemotherapy: No Cerebrovascular Accident: No Diabetes: Yes Patient Takes Glucophage: No Diminished Hearing: No GERD: Yes Hypertension: Yes Psychiatric: Yes Reproductive: Yes (Polcystic Ovarian Disease) Respiratory: No Influenza Vaccination: Yes ?: Not LMP: LAST WEEK : 0 Para: 0 Miscarriage: 0 : 0 Past Surgical History Hysterectomy: No Social History Alcohol Use: No Tobacco Use: No Substance Use: No Allergies-Medications (Allergen,Severity, Reaction): Coded Allergies: Penicillins (Verified Allergy, Unknown, Dizziness, 01/15/18) amlodipine (Unverified Allergy, Unknown, 01/15/18) Per pt. metformin (Unverified Allergy, Unknown, 01/15/18) Per pt, she thinks that she cannot take this as it resulted in Hives & Respiratory Issues. Reported Meds & Prescriptions Reported Meds & Active Scripts Active Reported Clindamycin (Clindamycin HCl) 300 Mg Cap 300 Mg PO TID Metoprolol Tartrate 50 Mg Tab 50 Mg PO BID Losartan (Losartan Potassium) 50 Mg Tab 50 Mg PO DAILY Review of Systems Except as stated in HPI: all other systems reviewed are Neg General / Constitutional: No: Fever, Chills Eyes: No: Diploplia HENT: No: Headaches Cardiovascular: No: Chest Pain or Discomfort, Palpitations Gastrointestinal: No: Nausea Genitourinary: Positive: Discharge Skin: No Rash Physical Exam Narrative GENERAL well-developed female SKIN: Focused skin assessment warm/dry. HEAD: Atraumatic. Normocephalic. EYES: Pupils equal and round. No scleral icterus. No injection or drainage. ENT: No nasal bleeding or discharge. Mucous membranes pink and moist. NECK: Trachea midline. No JVD. GASTROINTESTINAL: Abdomen soft, non-tender, nondistended. Hepatic and splenic margins not palpable. Pelvic: There is white vaginal discharge. There is no pain with movement of the cervix. No masses are felt MUSCULOSKELETAL: No obvious deformities. No clubbing. No cyanosis. No edema. NEUROLOGICAL: Awake and alert. No obvious cranial nerve deficits. Motor grossly within normal limits. Normal speech. PSYCHIATRIC: Appropriate mood and affect; insight and judgment normal. Data Data Last Documented VS Vital Signs Date Time Temp Pulse Resp B/P (MAP) Pulse Ox O2 Delivery O2 Flow Rate FiO2 01/15/18 10:11 97.5 75 16 128/73 (91) 98 Orders Orders Gc And Chlamydia Pcr (01/15/18 10:40) Wet Prep Profile (01/15/18 10:40) Labs Laboratory Tests Test 01/15/18 10:40 Clue Cells (Wet Prep) NONE SEEN Vaginal Trichomonas (Wet Prep) NONE SEEN Vaginal Yeast (Wet Prep) NONE SEEN MDM Medical Decision Making Medical Screen Exam Complete: Yes Emergency Medical Condition: Yes Medical Record Reviewed: Yes Differential Diagnosis Differential includes vaginitis, Trichomonas, BV Narrative Course Wet prep is negative. Patient has had BV and feels she has it again. I will treat with Flagyl in spite of the negative wet prep Diagnosis Primary Impression: Vaginitis Scripts Metronidazole (Flagyl) 500 Mg Tab 500 MG PO TID for Infection for 7 Days, TAB 0 Refills Prov: Arturo Sharma MD 01/15/18 Disposition: 01 DISCHARGE HOME Condition: Stable Arturo Sharma MD Jan 15, 2018 10:42
[2018-01-15] MEDS ORDERED: METR-1 PO (11:03)
== END 2018-01-15 11:16 | disposition home or self-care (01) ==
LOC: PHED 10:00
DX: N76.0 Acute vaginitis (principal); F31.9 Bipolar disorder, unspecified; K21.9 Gastro-esophageal reflux disease without esophagitis; I10 Essential (primary) hypertension; E11.9 Type 2 diabetes mellitus without complications
CPT/HCPCS: 87210; 87491; 87591; 99283

== ENCOUNTER 2018-01-17 15:37 | Emergency (ER) | payer MEDICARE, MEDICAID ==
[~2018-01-17] VITALS: Ht 157.5 cm; Wt 141.0 kg
[~2018-01-17 15:37] MED LIST changes: +CLIN300C5 PO; -DEXI60CA3 PO; -EQUE100C PO; +METR-1 PO; -TYLE325T PO
[2018-01-17 15:39] VITALS: BP 143/94; PULSE 82; RESP 16; TEMP 98.4; O2SAT 98
[2018-01-17] MEDS ORDERED: METR0.7528 VAGINAL (16:44)
[2018-01-17] MEDS ORDERED: CHLO.12%30 SWISH-SPIT (16:44)
--- NOTE | 2018-01-17 16:44 | PD ---
HPI Chief Complaint: Medication Refill Request Time Seen by Provider: 16:21 Travel History International Travel<30 days: No Contact w/Intl Traveler<30days: No Traveled to known affect area: No History of Present Illness HPI 37-year-old female with a history of gastrointestinal issues presents emergency department for multiple concerns. Says that she went to an urgent care and was prescribed penicillin for a tooth infection and then returned for clindamycin. Says that she change these medications because she had side effects. Says that since she has been taking clindamycin, she has had gastrointestinal cramping, gas and bloating. Says she has chronic gastrointestinal problems and would like a "shot" to avoid taking further antibiotics. Says that she is taking these medications for a tooth infection. Says that the tooth infection has improved however, she continues to have some pain. She denies fevers or chills. Says that when she has is cramping and bloating she takes a GI cocktail and this seems to relieve her symptoms. In addition, patient presented to the emergency department a couple of days ago and was diagnosed with vaginitis. She was given metronidazole however, she has not started this medication because of concern for irritation to her stomach. She requests the gel. Says she has not followed up with a primary care physician because of the distance between her house and the office. She denies fever, chills, chest pain , shortness of breath. PFSH Past Medical History Hx Anticoagulant Therapy: No Bipolar Disorder: Yes Cardiovascular Problems: Yes (HTN) Chemotherapy: No Cerebrovascular Accident: No Diabetes: Yes Patient Takes Glucophage: No Diminished Hearing: No GERD: Yes Hypertension: Yes Psychiatric: Yes Reproductive: Yes (Polcystic Ovarian Disease) Respiratory: No Tetanus Vaccination: Unknown Influenza Vaccination: Yes ?: Not LMP: last week : 0 Para: 0 Miscarriage: 0 : 0 Past Surgical History Hysterectomy: No Social History Alcohol Use: No Tobacco Use: No Substance Use: No Allergies-Medications (Allergen,Severity, Reaction): Coded Allergies: Penicillins (Verified Allergy, Unknown, Dizziness, 01/17/18) amlodipine (Unverified Allergy, Unknown, 01/17/18) Per pt. metformin (Unverified Allergy, Unknown, 01/17/18) Per pt, she thinks that she cannot take this as it resulted in Hives & Respiratory Issues. Reported Meds & Prescriptions Reported Meds & Active Scripts Active Chlorhexidine Gluconate (Mouth) Liq (Chlorhexidine Gluconate) 0.12% Soln 15 Ml SWISH-SPIT BID 7 Days Metrogel Vaginal Gel (Metronidazole Vaginal Gel) 0.75 % Gel 1 Appl VAGINAL HS 5 Days Flagyl (Metronidazole) 500 Mg Tab 500 Mg PO TID 7 Days Reported Clindamycin (Clindamycin HCl) 300 Mg Cap 300 Mg PO TID Metoprolol Tartrate 50 Mg Tab 50 Mg PO BID Losartan (Losartan Potassium) 50 Mg Tab 50 Mg PO DAILY Review of Systems Except as stated in HPI: all other systems reviewed are Neg Physical Exam Narrative GENERAL: Well-nourished, well-developed patient, in NAD SKIN: Focused skin assessment warm/dry. No rashes or lesions. HEAD: Normocephalic. Atraumatic. EYES: No scleral icterus. No injection or drainage. PERRLA, EOMI THROAT: No pharyngeal injection, exudates, or tonsillar hypertrophy. Airway is patent. Right upper tooth-molar region with some tenderness palpation without fluctuance. Poor dentition NECK: Supple, trachea midline. No JVD or lymphadenopathy. No meningismus. CARDIOVASCULAR: Regular rate and rhythm without murmurs, gallops, or rubs. RESPIRATORY: Breath sounds equal bilaterally. No accessory muscle use. No wheezes, rales, or rhonchi Abdominal: No CVA tenderness. Mild tenderness palpation diffusely without focal tenderness. No rebound tenderness. MUSCULOSKELETAL: No cyanosis, or edema. BACK: Nontender without obvious deformity. No CVA tenderness. Data Data Last Documented VS Vital Signs Date Time Temp Pulse Resp B/P (MAP) Pulse Ox O2 Delivery O2 Flow Rate FiO2 01/17/18 15:39 98.4 82 16 143/94 (110) 98 Orders Orders Lidocaine 2% Viscous (Xylocaine 2% Visco (01/17/18 16:45) Magnesium Hydroxide Liq (Milk Of Magnesi (01/17/18 16:45) Ed Discharge Order (01/17/18 16:51) MDM Medical Decision Making Medical Screen Exam Complete: Yes Emergency Medical Condition: Yes Differential Diagnosis Medication reaction, gastroenteritis, malingering, tooth infection Narrative Course 37-year-old female presents emergency department for evaluation of medication type of side effects that started 4 days ago. Says that she was evaluated and was given penicillin initially but changed to clindamycin because of side effects of the medication. Says currently she is having gastric bloating, gas, and cramping because of the clindamycin. Says normally when this happens she takes a GI cocktail and release her symptoms. In addition, she presented to the emergency department several days ago for vaginitis. Says that she did not take the medication for concern of exacerbation of her abdominal discomfort. She requests the metronidazole gel. Note that I am familiar with this patient from previous encounters on an outpatient basis. Vital signs are stable. GI cocktail administered with some improvement in her symptoms. Unfortunately, there is not much more I could give her in terms of oral medications for her tooth infection. Will try chlorhexidine oral rinse for her infection. We will change her metronidazole oral to gel. She strongly advised to follow-up with her primary care physician as soon as possible. Follow-up with a dentist within 1 week. Diagnosis Primary Impression: Tooth infection Additional Impression: Medication reaction Qualified Codes: T50.905A - Adverse effect of unspecified drugs, medicaments and biological substances, initial encounter Referrals: Dentist Primary Care Physician Additional Instructions: I strongly advise you to follow-up with the primary care physician to ensure resolution of your symptoms. Unfortunately, there are no other oral medications I can give you for your tooth infection. I recommend continue clindamycin as tolerated. You may use chlorhexidine mouth rinse if you are unable to tolerate the clindamycin any longer. Start the metrogel for your vaginitis. Scripts Chlorhexidine Gluconate (Mouth) Liq (Chlorhexidine Gluconate (Mouth) Liq) 0.12% Soln 15 ML SWISH-SPIT BID for 7 Days, #210 ML 0 Refills Prov: Levar Miller MD 01/17/18 Metronidazole Vaginal Gel (Metrogel Vaginal Gel) 0.75 % Gel 1 APPL VAGINAL HS for Infection for 5 Days, #1 TUBE 0 Refills Prov: Levar Miller MD 01/17/18 Disposition: 01 DISCHARGE HOME Condition: Stable Zoya Argueta Jan 17, 2018 16:43
[2018-01-17] MEDS ORDERED: LIDOCAINE VISCOUS 2% SOLN 15 ML UDC SWISH-SWAL ONE (16:45)
[2018-01-17] MEDS ORDERED: MAGNESIUM HYDROXIDE SUSP 30 ML CUP PO ONE (16:45)
== END 2018-01-17 17:07 | disposition home or self-care (01) ==
LOC: PHEFT 15:37
DX: K04.7 Periapical abscess without sinus (principal); R10.9 Unspecified abdominal pain; R14.0 Abdominal distension (gaseous); T36.8X5A Adverse effect of other systemic antibiotics, initial encounter; N76.0 Acute vaginitis; E11.9 Type 2 diabetes mellitus without complications; F31.9 Bipolar disorder, unspecified; I10 Essential (primary) hypertension; K21.9 Gastro-esophageal reflux disease without esophagitis
CPT/HCPCS: 99283

== ENCOUNTER 2018-01-24 01:41 | Emergency (ER) | payer MEDICARE, MEDICAID ==
[~2018-01-24] VITALS: Ht 157.5 cm; Wt 143.5 kg
[~2018-01-24 01:41] MED LIST changes: +CHLO.12%30 SWISH-SPIT; +METR0.7528 VAGINAL
[2018-01-24 01:48] VITALS: BP 172/95; PULSE 74; RESP 20; TEMP 97.4; O2SAT 90
[2018-01-24] MEDS ORDERED: LURA20TA PO (02:07)
[2018-01-24] MEDS ORDERED: DEXI60CA3 PO (02:07)
[2018-01-24] MEDS ORDERED: FAMOTIDINE 20 MG/2 ML VIAL IV PUSH ONE (02:15)
[2018-01-24 02:38] LABS: AUTOMATED NEUTROPHIL # 5.3 TH/MM3 (1.8-7.7); BASOPHIL % 0.2 % (0.0-2.0); HEMATOCRIT 35.3 % (35.0-46.0); HEMOGLOBIN 11.3 GM/DL (11.6-15.3); MEAN CELL VOLUME 82.8 FL (80.0-100.0); MEAN CORPUSCULAR HEMOGLOBIN 26.5 PG (27.0-34.0); MONO % 4.6 % (0.0-8.0); MONOCYTE # 0.3 TH/MM3 (0-0.9); NEUT % 69.2 % (16.0-70.0); PLATELET COUNT 204 TH/MM3 (150-450); RED BLOOD COUNT 4.26 MIL/MM3 (4.00-5.30); RED CELL DISTRIBUTION WIDTH 13.9 % (11.6-17.2); WHITE BLOOD COUNT 7.6 TH/MM3 (4.0-11.0)
[2018-01-24 02:39] VITALS: RESP 20; O2SAT 93
[2018-01-24] MEDS: SODIUM CHLORIDE 0.9% FLUSH 10 ML FLUSH IV FLUSH PRN ×3 (02:40→03:55)
[2018-01-24 02:43] VITALS: PULSE 77; RESP 20; O2SAT 93
[2018-01-24 02:45] LABS: CHLORIDE 105 MEQ/L (98-107); SODIUM (NA) 138 MEQ/L (136-145)
--- NOTE | 2018-01-24 02:47 | PD ---
HPI Chief Complaint: Abdominal Pain Time Seen by Provider: 02:13 Travel History International Travel<30 days: No Contact w/Intl Traveler<30days: No Traveled to known affect area: No History of Present Illness HPI 37-year-old female presents to the emergency department for complaint of epigastric pain with nausea vomiting after eating spiral ham. Patient states she had ham around 6 PM and by 10 PM started having nausea and abdominal cramping. Patient states she vomited multiple times. Patient did take Zofran without symptomatically relief. Upon arrival to the emergency department had a large loose stool. Patient denies fever or chills. Patient continues to complain of some abdominal epigastric cramping. Patient does not report chest pain but does have history of GERD with episodes of reflux causing some shortness of breath. Patient has noted some shortness of breath as well. Patient occasionally has wheezing when she has episodes of exacerbation of her GERD. Patient denies wheezing. Patient has had no hematemesis or coffee- ground emesis. Patient denies aspirating any of her emesis. Patient's had no choking. Patient has had no hoarseness or stridor. Patient denies any dysuria frequency urgency. Patient denies . Patient rates pain 0/10 intensity at this time. Patient has history of significant reflux esophagitis and was previously on Nexium is currently on Dexilant. 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 Presently patient states she feels somewhat improved since arriving to the emergency department is unable to identify other alleviating factors. Significant other also ate the ham also around 10 PM and has not yet developed any symptoms; patient reports significant other consumed a much smaller quantity of the meat. PFSH Past Medical History Narrative Medical Hypertension, polycystic ovary syndrome, morbid obesity, bipolar disorder, hyperglycemia, GERD; endoscopy; no tobacco use; nursing notes reviewed Hx Anticoagulant Therapy: No Bipolar Disorder: Yes Cardiovascular Problems: Yes (HTN) Chemotherapy: No Cerebrovascular Accident: No Diabetes: Yes Patient Takes Glucophage: No Diminished Hearing: No GERD: Yes Hypertension: Yes Psychiatric: Yes Reproductive: Yes (Polcystic Ovarian Disease) Respiratory: No ?: Not LMP: 01/08/2018 : 0 Para: 0 Miscarriage: 0 : 0 Past Surgical History Hysterectomy: No Social History Alcohol Use: No Tobacco Use: No Substance Use: No Allergies-Medications (Allergen,Severity, Reaction): Coded Allergies: Penicillins (Verified Allergy, Unknown, Dizziness, 01/17/18) amlodipine (Unverified Allergy, Unknown, 01/17/18) Per pt. metformin (Unverified Allergy, Unknown, 01/17/18) Per pt, she thinks that she cannot take this as it resulted in Hives & Respiratory Issues. Reported Meds & Prescriptions Reported Meds & Active Scripts Active Zofran Odt (Ondansetron Odt) 4 Mg Tab 4 Mg SL Q6HR PRN Proair Hfa 8.5 GM Inh (Albuterol Sulfate) 90 Mcg/Act Aer 2 Puff INH Q4-6H PRN 108 mcg/actuation Reported Latuda (Lurasidone) 20 Mg Tab 20 Mg PO DAILY Dexilant (Dexlansoprazole) 60 Mg bp 60 Mg PO DAILY Metoprolol Tartrate 50 Mg Tab 50 Mg PO BID Losartan (Losartan Potassium) 50 Mg Tab 50 Mg PO DAILY Review of Systems Except as stated in HPI: all other systems reviewed are Neg General / Constitutional: No: Fever, Chills HENT: No: Congestion Cardiovascular: No: Chest Pain or Discomfort Respiratory: Positive: Shortness of Breath, No: Cough, Wheezing Gastrointestinal: Positive: Nausea, Vomiting, Abdominal Pain, No: Diarrhea, Hematemesis, Hematochezia, Constipation, Loss of Appetite Genitourinary: No: Urgency, Frequency, Dysuria Musculoskeletal: No: Myalgias, Arthralgias Skin: No Rash Neurologic: No: Weakness, Dizziness, Syncope Psychiatric: No: Anxiety Hematologic/Lymphatic: No: Easy Bruising Physical Exam Narrative GENERAL: Well-developed well-nourished morbidly obese female in no acute distress no respiratory distress SKIN: Warm and dry. HEAD: Normocephalic. EYES: No scleral icterus. No injection or drainage. NECK: Supple, trachea midline. No JVD or lymphadenopathy. CARDIOVASCULAR: Regular rate and rhythm without murmurs, gallops, or rubs. RESPIRATORY: Breath sounds equal bilaterally. No accessory muscle use. GASTROINTESTINAL: Abdomen soft, non-tender, nondistended, exam somewhat impaired by marked abdominal girth. MUSCULOSKELETAL: No cyanosis, or edema. BACK: Nontender without obvious deformity. No CVA tenderness. Data Data Last Documented VS Vital Signs Date Time Temp Pulse Resp B/P (MAP) Pulse Ox O2 Delivery O2 Flow Rate FiO2 01/24/18 03:59 20 95 Room Air 01/24/18 02:43 77 01/24/18 01:48 97.4 Orders Orders Complete Blood Count With Diff (01/24/18 02:13) Comprehensive Metabolic Panel (01/24/18 02:13) Lipase (01/24/18 02:13) Iv Access Insert/Monitor (01/24/18 02:13) Ecg Monitoring (01/24/18 02:13) Oximetry (01/24/18 02:13) Sodium Chloride 0.9% Flush (Ns Flush) (01/24/18 02:15) Electrocardiogram (01/24/18 02:13) Chest, Single Ap (01/24/18 02:13) Ed Urine Pregnancytest Poc (01/24/18 02:13) Famotidine Inj (Pepcid Inj) (01/24/18 02:15) Al-Mag Hy-Si 40-40-4 Mg/Ml Liq (Mag-Al P (01/24/18 03:45) Sucralfate Liq (Carafate Liq) (01/24/18 03:45) Albuterol Neb (Albuterol Neb) (01/24/18 04:00) Ed Discharge Order (01/24/18 04:20) Labs Laboratory Tests Test 01/24/18 02:30 White Blood Count 7.6 TH/MM3 Red Blood Count 4.26 MIL/MM3 Hemoglobin 11.3 GM/DL Hematocrit 35.3 % Mean Corpuscular Volume 82.8 FL Mean Corpuscular Hemoglobin 26.5 PG Mean Corpuscular Hemoglobin Concent 32.0 % Red Cell Distribution Width 13.9 % Platelet Count 204 TH/MM3 Mean Platelet Volume 9.0 FL Neutrophils (%) (Auto) 69.2 % Lymphocytes (%) (Auto) 26.0 % Monocytes (%) (Auto) 4.6 % Eosinophils (%) (Auto) 0.0 % Basophils (%) (Auto) 0.2 % Neutrophils # (Auto) 5.3 TH/MM3 Lymphocytes # (Auto) 2.0 TH/MM3 Monocytes # (Auto) 0.3 TH/MM3 Eosinophils # (Auto) 0.0 TH/MM3 Basophils # (Auto) 0.0 TH/MM3 CBC Comment DIFF FINAL Differential Comment Blood Urea Nitrogen 17 MG/DL Creatinine 0.87 MG/DL Random Glucose 98 MG/DL Total Protein 7.2 GM/DL Albumin 3.1 GM/DL Calcium Level 8.4 MG/DL Alkaline Phosphatase 78 U/L Aspartate Amino Transf (AST/SGOT) 14 U/L Alanine Aminotransferase (ALT/SGPT) 32 U/L Total Bilirubin 0.2 MG/DL Sodium Level 138 MEQ/L Potassium Level 3.5 MEQ/L Chloride Level 105 MEQ/L Carbon Dioxide Level 27.0 MEQ/L Anion Gap 6 MEQ/L Estimat Glomerular Filtration Rate 88 ML/MIN Lipase 134 U/L [facility] Medical Decision Making Medical Screen Exam Complete: Yes Emergency Medical Condition: Yes Medical Record Reviewed: Yes Interpretation(s) EKG: Normal sinus rhythm rate [address] elevation injury pattern or ectopy noted Differential Diagnosis Gastritis foodborne illness peptic ulcer disease biliary colic cholecystitis pancreatitis atypical chest pain ACS esophageal spasm aspiration pneumonitis Narrative Course IV access obtained specimens collections of resulting repeat O2 saturation on room air on different digit identifies O2 saturation to be 98% patient not having any shortness of breath or symptoms at this time; will obtain chest x-ray , ekg, specimens collected for resulting; patient administered Pepcid as well as IV fluids Patient feeling well however noted when sitting upright O2 saturations are in normal range 96-98% however decrease to 91-93% when resting supine or with semi- Munoz's at 45 her saturations do decrease, this resolves when she sits up or coughs. Patient reports she has a special GI pillow at home that props her up so that she does not have issues with her reflux at night. Patient states that she has episodes like this when she has reflux, since starting the Dexilant this has lessened but due to recent antibiotic intolerance prescribed for dental infection she went off of her dexilent for awhile which has also exacerbated her reflux symptoms. The patient denies any choking. Suspect that she is having some intermittent airway irritation because of her gerd history and vomiting has most likely contributed to symptoms again tonight. Patient is out of her inhaler. Patient will be given an updraft treatment as she has been on albuterol before in the recent past. Patient reports she is feeling much improved and desirous of being discharged home. 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 Diagnosis Primary Impression: GERD (gastroesophageal reflux disease) Qualified Codes: K21.9 - Gastro-esophageal reflux disease without esophagitis Additional Impressions: Reactive airway disease that is not asthma Potential for food poisoning Referrals: [facility] call for appointment Primary Care Physician 1 day Patient Instructions: General Instructions Additional Instructions: Continue with your maintenance medications as prescribed especially her Dexilant and avoid eating after 7 PM May use [id number] Maalox to help with reflux symptoms as well Use Zofran as prescribed as needed for current GI issues related to foodborne illness Use inhaler as prescribed as needed for wheezing/reactive airways disease Follow-up with your primary care provider Follow-up with your corner cutter machine operator Recommend clear liquid diet for next 12-24 hrs. and then advance to bland/brat diet and regular diet avoiding fried and fatty foods Med/Other Pt SpecificInfo: Prescription(s) given Scripts Ondansetron Odt (Zofran Odt) 4 Mg Tab 4 MG SL Q6HR Y for Nausea/Vomiting, #10 TAB 0 Refills Prov: Love Solano MD 01/24/18 Albuterol 8.5 GM Inh (Proair Hfa 8.5 GM Inh) 90 Mcg/Act Aer 2 PUFF INH Q4-6H Y for SHORTNESS OF BREATH, #1 INHALER 0 Refills 108 mcg/actuation Prov: Love Solano MD 01/24/18 Disposition: 01 DISCHARGE HOME Condition: Stable Love Solano MD Jan 24, 2018 02:47
[2018-01-24 02:49] VITALS: BP 138/78; RESP 20; O2SAT 99
[2018-01-24 02:49] LABS: ALBUMIN 3.1 GM/DL (3.4-5.0); CALCIUM 8.4 MG/DL (8.5-10.1)
[2018-01-24 02:50] LABS: BLOOD UREA NITROGEN 17 MG/DL (7-18); GLUCOSE,RANDOM 98 MG/DL (74-106)
[2018-01-24 02:52] LABS: ALT (GPT) 32 U/L (10-53); AST (GOT) 14 U/L (15-37); CREATININE 0.87 MG/DL (0.50-1.00); GLOMERULAR FILTRATION RATE 88 ML/MIN (>89)
[2018-01-24 02:54] LABS: TOTAL BILIRUBIN ADULT 0.2 MG/DL (0.2-1.0); TOTAL PROTEIN 7.2 GM/DL (6.4-8.2)
[2018-01-24 02:55] LABS: ALKALINE PHOSPHATASE 78 U/L (45-117)
--- NOTE | 2018-01-24 03:16 | RADRPT ---
EXAM DATE: 01/24/2018 2:48 AM EDT AGE/SEX: 37 years / Female INDICATIONS: Shortness of breath for 3 hours CLINICAL DATA: This is the patient's initial encounter. Patient reports that signs and symptoms have been present for 1 day and indicates a pain score of 0/10. MEDICAL/SURGICAL HISTORY: Hypertension. Diabetes mellitus type II. None. [place] [facility] [place]. . FINDINGS: A single AP view of the chest demonstrates the lungs to be symmetrically aerated without evidence of mass, infiltrate or effusion. The cardiomediastinal contours are unremarkable. Osseous structures a re intact. CONCLUSION: Negative examination. Electronically signed by: Bogdan Jean-Baptiste MD 01/24/2018 3:15 AM EDT
[2018-01-24] MEDS ORDERED: SUCRALFATE 1 GM/10 ML CUP PO ONE (03:45)
[2018-01-24] MEDS ORDERED: ALUMINUM/MAGNESIUM/SIMETH 30 ML CUP PO ONE (03:45)
[2018-01-24 03:59] VITALS: RESP 20; O2SAT 95
[2018-01-24] MEDS ORDERED: RESP: ALBUTEROL 2.5 MG/3 ML NEB (SCH) NEB ONE (04:00)
[2018-01-24] MEDS ORDERED: ZOFR4TAB3 SL (04:22)
[2018-01-24] MEDS ORDERED: ALBUAER3 INH (04:22)
[2018-01-24 04:50] VITALS: BP 172/95
--- NOTE | 2018-01-24 18:34 | EKG ---
Date Performed: 01/24/2018 Time Performed: 02:34:23 PTAGE: 37 years EKG: Sinus rhythm NORMAL ECG Since the PREVIOUS TRACING , no significant change noted PREVIOUS TRACIN11/19/2017 13.01 DOCTOR: Kalli Scherer Interpretating Date/Time 01/24/2018 18:32:48
== END 2018-01-24 04:52 | disposition home or self-care (01) ==
LOC: PHED 01:41
DX: K21.9 Gastro-esophageal reflux disease without esophagitis (principal); J98.8 Other specified respiratory disorders; R11.2 Nausea with vomiting, unspecified; R06.02 Shortness of breath; I10 Essential (primary) hypertension; E11.9 Type 2 diabetes mellitus without complications; F31.9 Bipolar disorder, unspecified; Z87.42 Personal history of other diseases of the female genital tract
CPT/HCPCS: 71045; 80053; 83690; 84703; 85025; 93005; 94664; 96374; 99285; J7613